=== PATIENT | female | born 1985 | race Caucasian/White ===

== ENCOUNTER 2023-12-16 05:45 | Day surgery (SDC) | payer BC ==
[2023-12-15 12:44] VITALS: BMI 32.3
[2023-12-16] MEDS ORDERED: PROPOFOL 20 ML ONE (06:37)
[2023-12-16] MEDS ORDERED: fentaNYL 50 mcg/mL 1 mL Vial ONE (06:37)
[2023-12-16] MEDS ORDERED: Ondansetron PF 4 MG/2 ML Vial ONE (06:40)
[2023-12-16] MEDS ORDERED: Dexamethasone 20 MG/5 ML VIAL ONE (06:40)
[2023-12-16] MEDS ORDERED: Lidocaine 1% PF 5 ML VIAL ONE (06:40)
[2023-12-16] MEDS ORDERED: EPINEPHrine 1 MG/ML VIAL ONE (06:44)
[2023-12-16] MEDS ORDERED: Bupivacaine PF 0.5% 30 ML VIAL ONE (06:45)
[2023-12-16] MEDS ORDERED: CEFAZOLIN 2 GM VIAL ONE (07:02)
[2023-12-16] MEDS ORDERED: Ketorolac Tromethamine 30 MG (1 mL) VIAL ONE (07:34)
[2023-12-16] MEDS ORDERED: HYDROcodone/Acetaminophen 5/325 mg Tablet ONE (08:30)
[2023-12-16] MEDS ORDERED: POTASSIUM IODIDE ONE (10:00)
== END 2023-12-16 10:00 | disposition home or self-care (01) ==
LOC: CSHSDC 05:45
PROVIDERS: ATTEND Obstetrics & Gynecology
PROC: 0UBC7ZZ Excision of Cervix, Via Natural or Artificial Opening (ICD-10-PCS; principal; 2023-12-16)
DX: D06.0 Carcinoma in situ of endocervix (principal); R87.810 Cervical high risk human papillomavirus (HPV) DNA test positive; E11.9 Type 2 diabetes mellitus without complications; E28.39 Other primary ovarian failure; E03.9 Hypothyroidism, unspecified; Z86.718 Personal history of other venous thrombosis and embolism; Z79.85 Long-term (current) use of injectable non-insulin antidiabetic drugs; Z79.890 Hormone replacement therapy; Z79.84 Long term (current) use of oral hypoglycemic drugs; Z79.899 Other long term (current) drug therapy; Z88.5 Allergy status to narcotic agent
CPT/HCPCS: 88305; 88307; J0171; J0665; J1100; J1885; J2405; J2704; J3010